=== PATIENT | female | born 1990 | race Caucasian/White ===

== ENCOUNTER 2017-11-21 13:37 | Emergency (ER) | payer OTHER ==
[~2017-11-21] VITALS: Ht 167.6 cm; Wt 60.3 kg
[2017-11-21] MEDS ORDERED: PRENATABS RX T1 EACH (13:50)
[2017-11-21] MEDS ORDERED: SEROQUEL25 MG (13:50)
== END 2017-11-21 20:04 | disposition home or self-care (01) ==
LOC: ER 13:37
DX: O26.891 Other specified pregnancy related conditions, first trimester (principal); R10.2 Pelvic and perineal pain; Z34.01 Encounter for supervision of normal first pregnancy, first trimester

== ENCOUNTER 2018-05-29 16:56 | Outpatient (CLI) | payer OTHER ==
[~2018-05-29 16:56] MED LIST: PRENATABS RX T1 EACH; SEROQUEL25 MG
== END 2018-05-30 11:24 | disposition home or self-care (01) ==
LOC: OBS/DEL 16:56
DX: O47.1 False labor at or after 37 completed weeks of gestation (principal); Z34.83 Encounter for supervision of other normal pregnancy, third trimester

== ENCOUNTER 2018-06-18 06:57 | Inpatient (IN) | payer OTHER ==
[~2018-06-18] VITALS: Ht 167.6 cm; Wt 72.6 kg
[2018-06-18] MEDS ORDERED: LAMICTAL100 MG PO (10:15)
[2018-06-20] MEDS ORDERED: MAXFE CAPLET1 EACH PO (14:20)
== END 2018-06-20 14:48 | disposition home or self-care (01) | DRG 807 ==
LOC: OB/GYN 06:57 → LDR 06:57 → OB/GYN 23:49
PROVIDERS: ADMIT Obstetrics & Gynecology
PROC: 10E0XZZ Delivery of Products of Conception, External Approach (ICD-10-PCS; principal; 2018-06-18)
PROC: 4A1HXCZ Monitoring of Products of Conception, Cardiac Rate, External Approach (ICD-10-PCS; 2018-06-18)
PROC: 4A033R1 Measurement of Arterial Saturation, Peripheral, Percutaneous Approach (ICD-10-PCS; 2018-06-19)
DX: O80 Encounter for full-term uncomplicated delivery (principal); Z37.0 Single live birth; Z3A.39 39 weeks gestation of pregnancy